=== PATIENT | female | born 1965 | race Caucasian/White ===

== ENCOUNTER 2017-02-18 02:46 | Outpatient (CLI) | payer MEDICARE, MEDICAID ==
[~2017-02-18 02:46] MED LIST: CHOL100010 PO; INSU100C4 SQ; LANTUS SQ
== END 2017-02-18 23:59 | disposition home or self-care (01) ==
LOC: DIABETIC 02:46
PROVIDERS: ATTEND Family Medicine
DX: E10.65 Type 1 diabetes mellitus with hyperglycemia (principal)
CPT/HCPCS: G0108

== ENCOUNTER 2017-03-29 02:20 | Outpatient (CLI) | payer MEDICARE, MEDICAID | END 2017-03-29 23:59 | disposition home or self-care (01) | LOC: DIABETIC 02:20 | PROVIDERS: ATTEND Family Medicine | DX: E11.65 Type 2 diabetes mellitus with hyperglycemia (principal) | CPT/HCPCS: G0108 ==

== ENCOUNTER 2017-03-31 12:28 | Emergency (ER) | payer MEDICARE, MEDICAID ==
[~2017-03-31] VITALS: Ht 162.6 cm; Wt 45.0 kg
[2017-03-31 12:45] VITALS: BP 111/70
[2017-03-31] MEDS ORDERED: TAM75C PO (14:10)
== END 2017-03-31 14:19 | disposition home or self-care (01) ==
LOC: ER 12:29
DX: J10.1 Influenza due to other identified influenza virus with other respiratory manifestations (principal); E11.9 Type 2 diabetes mellitus without complications; Z79.4 Long term (current) use of insulin; Z88.2 Allergy status to sulfonamides; Z88.8 Allergy status to other drugs, medicaments and biological substances
CPT/HCPCS: 99285

== ENCOUNTER 2017-11-14 01:50 | Outpatient (CLI) | payer MEDICARE, MEDICAID | END 2017-11-14 23:59 | disposition home or self-care (01) | LOC: DIABETIC 01:50 | PROVIDERS: ATTEND Family Medicine | DX: E10.65 Type 1 diabetes mellitus with hyperglycemia (principal) | CPT/HCPCS: G0108 ==

== ENCOUNTER 2020-07-25 08:49 | Emergency (ER) | payer MEDICARE, MEDICAID ==
[~2020-07-25] VITALS: Ht 160 cm; Wt 55.4 kg
[~2020-07-25 08:49] MED LIST changes: +CYCL-1 PO
[2020-07-25 08:52] VITALS: BP 134/74
== END 2020-07-25 09:23 | disposition home or self-care (01) ==
LOC: ER 08:49
DX: S93.601A Unspecified sprain of right foot, initial encounter (principal); E11.9 Type 2 diabetes mellitus without complications; G89.29 Other chronic pain; E07.9 Disorder of thyroid, unspecified; Z86.14 Personal history of Methicillin resistant Staphylococcus aureus infection; Z86.19 Personal history of other infectious and parasitic diseases; Z98.890 Other specified postprocedural states; Z79.4 Long term (current) use of insulin; Z79.899 Other long term (current) drug therapy; Z88.2 Allergy status to sulfonamides; Z88.6 Allergy status to analgesic agent; Z88.8 Allergy status to other drugs, medicaments and biological substances; W22.8XXA Striking against or struck by other objects, initial encounter; Y93.01 Activity, walking, marching and hiking; Y92.89 Other specified places as the place of occurrence of the external cause; Y99.8 Other external cause status
CPT/HCPCS: 73630; 99283

== ENCOUNTER 2021-12-27 03:32 | Emergency (ER) | payer MEDICARE, MEDICAID ==
[~2021-12-27] VITALS: Ht 162.6 cm; Wt 59.1 kg
[2021-12-27] MEDS ORDERED: normal saline 1000ML IV soln IVB ONE ×2 (03:55→05:50)
[2021-12-27 04:14] LABS: CLARITY,URINE CLEAR (Clear); COLOR,URINE STRAW (Yellow); GLUCOSE, URINE >=1000 mg/dl (Neg); KETONES,URINE 40 mg/dl (Neg); LEUKOCYTE ESTERASE ,URINE NEGATIVE (Neg); NITRITES, URINE NEGATIVE (Neg); OCCULT BLOOD,URINE TRACE-INTACT (Neg); PROTEIN,URINE NEGATIVE (Neg); UROBILINOGEN,URINE 0.2 E.U/dL (0.2-1.0)
[2021-12-27 04:18] LABS: UA COLLECTION TYPE CLN CATCH MIDSTREAM
[2021-12-27 04:19] LABS: SQUAMOUS EPITHELIAL CELL,UR FEW /LPF (FEW)
[2021-12-27 04:20] LABS: BACTERIA,URINE NONE SEEN /HPF (Neg); RBC,URINE 0-2 /HPF (0-2); WBC,URINE 0-4 /HPF (0-4)
[2021-12-27] MEDS ORDERED: ondansetron/PF 4mg/2ml inj IV ONE (04:20)
[2021-12-27 05:04] LABS: BASOPHILS % (AUTO) 0.5 % (0-1); EOSINOPHILS # (AUTO) 0.2 X10'3 (0-0.9); EOSINOPHILS % (AUTO) 2.1 % (0-6); HEMATOCRIT 35.3 % (35.0-45.0); HEMOGLOBIN 11.7 g/dl (12.0-16.0); LYMPHOCYTES % (AUTO) 13.8 % (21-51); MEAN CORPUSCULAR HEMOGLOBIN 32.6 PG (27.0-31.0); MEAN CORPUSCULAR HGB CONC 33.3 g/dL (33.0-36.5); MEAN CORPUSCULAR VOLUME 97.9 FL (78-98); MEAN PLATELET VOLUME 8.3 FL (7.4-10.4); MONOCYTES # (AUTO) 0.5 X10'3 (0-0.9); MONOCYTES % (AUTO) 7.2 % (2-12); NEUTROPHILS # (AUTO) 5.7 X10'3 (1.8-7.7); NEUTROPHILS % (AUTO) 76.4 % (42-75); PLATELET COUNT 224 X10'3 (140-440); RED CELL DISTRIBUTION WIDTH 13.9 % (11.5-14.5); WHITE BLOOD COUNT 7.4 X10'3 (4.5-11.0)
[2021-12-27 05:21] LABS: ALANINE AMINOTRANSFERASE 25 U/L (12-78); ALBUMIN 3.9 G/DL (3.4-5.0); ALBUMIN/GLOBULIN RATIO 1.1 (1.1-1.5); ALKALINE PHOSPHATASE 100 IU/L (46-116); ANION GAP 12 (8-16); ASPARTATE AMINO TRANSFERASE 21 U/L (10-37); BILIRUBIN,TOTAL 0.3 MG/DL (0.1-1.0); BLOOD UREA NITROGEN 19 MG/DL (7-18); CALCIUM 9.5 MG/DL (8.5-10.1); CHLORIDE 99 MMOL/L (99-107); CREATININE 0.95 MG/DL (0.40-0.90); PHOSPHORUS 3.1 MG/DL (2.3-4.5); POTASSIUM 4.4 MMOL/L (3.5-5.1); SODIUM 135 MMOL/L (135-145); TOTAL CARBON DIOXIDE 24.5 MMOL/L (24-32); TOTAL PROTEIN 7.5 G/DL (6.4-8.2); eGFR 61 ML/MIN
[2021-12-27] MEDS ORDERED: insulin regular, human 10 units/0.1 ml syringe IV ONE (05:35)
[2021-12-27 05:37] LABS: GLUCOSE 513 MG/DL (70-104)
--- NOTE | 2021-12-27 07:04 | NUR ---
BS of 428 pre insulin & 500 ns
[2021-12-27] MEDS ORDERED: insulin regular, human 10 units/0.1 ml syringe SQ ONE (08:12)
[2021-12-27 09:32] VITALS: BP 107/61
== END 2021-12-27 09:35 | disposition home or self-care (01) ==
LOC: ER 03:34
DX: E10.65 Type 1 diabetes mellitus with hyperglycemia (principal); Z20.822 Contact with and (suspected) exposure to COVID-19; J06.9 Acute upper respiratory infection, unspecified; G89.29 Other chronic pain; Z88.2 Allergy status to sulfonamides; Z88.5 Allergy status to narcotic agent
CPT/HCPCS: 36415; 71045; 80053; 81001; 82948; 83735; 84100; 85025; 87502; 87503; 87635; 93005; 96361; 96372; 96374; 96375; 99285; C9803; J1815; J2405; J7030; J7040

== ENCOUNTER 2022-01-16 11:49 | Emergency (ER) | payer MEDICARE, MEDICAID | END 2022-01-16 15:09 | disposition left against medical advice (07) | LOC: ER 11:49 | DX: M79.646 Pain in unspecified finger(s) (principal); Z53.21 Procedure and treatment not carried out due to patient leaving prior to being seen by health care provider ==

== ENCOUNTER 2022-03-07 19:34 | Emergency (ER) | payer MEDICARE, MEDICAID ==
[~2022-03-07] VITALS: Ht 162.6 cm; Wt 59.1 kg
[2022-03-07 20:10] LABS: BASOPHILS % (AUTO) 0.3 % (0-1); EOSINOPHILS % (AUTO) 0.3 % (0-6); HEMATOCRIT 34.6 % (35.0-45.0); HEMOGLOBIN 11.7 g/dl (12.0-16.0); LYMPHOCYTES # (AUTO) 1.6 X10'3 (1.1-4.8); LYMPHOCYTES % (AUTO) 27.4 % (21-51); MEAN CORPUSCULAR HEMOGLOBIN 32.7 PG (27.0-31.0); MEAN CORPUSCULAR HGB CONC 33.8 g/dL (33.0-36.5); MEAN PLATELET VOLUME 7.7 FL (7.4-10.4); MONOCYTES # (AUTO) 0.2 X10'3 (0-0.9); MONOCYTES % (AUTO) 4.3 % (2-12); NEUTROPHILS # (AUTO) 3.9 X10'3 (1.8-7.7); NEUTROPHILS % (AUTO) 67.7 % (42-75); PLATELET COUNT 257 X10'3 (140-440); RED BLOOD COUNT 3.57 X10'6 (4.20-5.60); RED CELL DISTRIBUTION WIDTH 13.1 % (11.5-14.5); WHITE BLOOD COUNT 5.7 X10'3 (4.5-11.0)
[2022-03-07 20:22] LABS: ALANINE AMINOTRANSFERASE 106 U/L (12-78); ALBUMIN 4.1 G/DL (3.4-5.0); ALBUMIN/GLOBULIN RATIO 1.2 (1.1-1.5); ALKALINE PHOSPHATASE 130 IU/L (46-116); ANION GAP 6 (8-16); ASPARTATE AMINO TRANSFERASE 248 U/L (10-37); BILIRUBIN,TOTAL 0.4 MG/DL (0.1-1.0); BLOOD UREA NITROGEN 20 MG/DL (7-18); BUN/CREATININE RATIO 28.6 (6.6-38.0); CALCIUM 9.7 MG/DL (8.5-10.1); CHLORIDE 103 MMOL/L (99-107); GLUCOSE 227 MG/DL (70-104); LIPASE 70 U/L (73-393); POTASSIUM 3.7 MMOL/L (3.5-5.1); SODIUM 137 MMOL/L (135-145); TOTAL CARBON DIOXIDE 28.3 MMOL/L (24-32); TOTAL PROTEIN 7.4 G/DL (6.4-8.2); eGFR 87 ML/MIN
[2022-03-07 20:35] VITALS: BP 113/67
[2022-03-07 21:46] LABS: URINE HCG NEGATIVE (NEG)
[2022-03-07 21:53] LABS: CLARITY,URINE CLEAR (Clear); COLOR,URINE YELLOW (Yellow); GLUCOSE, URINE 250 mg/dl (Neg); KETONES,URINE TRACE mg/dl (Neg); LEUKOCYTE ESTERASE ,URINE NEGATIVE (Neg); NITRITES, URINE NEGATIVE (Neg); OCCULT BLOOD,URINE NEGATIVE (Neg); PROTEIN,URINE NEGATIVE (Neg)
[2022-03-07 21:59] LABS: UA COLLECTION TYPE VOIDED
[2022-03-07] MEDS ORDERED: normal saline 1000ML IV soln IVB ONE (22:55)
[2022-03-07 23:20] LABS: ETHANOL < 0.010 GM/DL (0.0-0.010)
[2022-03-07 23:27] LABS: URINE AMPHETAMINE SCREEN NEGATIVE (Neg); URINE BARBITUATE SCREEN NEGATIVE (Neg); URINE BENZODIAZEPINES SCREEN NEGATIVE (Neg); URINE CANNABINOID SCREEN NEGATIVE (Neg); URINE COCAINE SCREEN NEGATIVE (Neg); URINE METHADONE SCREEN NEGATIVE (Neg); URINE OPIATE SCREEN NEGATIVE (Neg); URINE PHENCYCLIDINE SCREEN NEGATIVE (Neg)
== END 2022-03-08 00:45 | disposition home or self-care (01) ==
LOC: ER 19:35
DX: R74.01 Elevation of levels of liver transaminase levels (principal); R07.81 Pleurodynia; R11.0 Nausea; R10.84 Generalized abdominal pain; E11.9 Type 2 diabetes mellitus without complications; F41.9 Anxiety disorder, unspecified; F32.9 Major depressive disorder, single episode, unspecified; G89.29 Other chronic pain; Z86.14 Personal history of Methicillin resistant Staphylococcus aureus infection; Z72.89 Other problems related to lifestyle; Z98.890 Other specified postprocedural states; Z88.2 Allergy status to sulfonamides; Z88.6 Allergy status to analgesic agent; Z88.8 Allergy status to other drugs, medicaments and biological substances; Z79.4 Long term (current) use of insulin; Z79.899 Other long term (current) drug therapy
CPT/HCPCS: 36415; 76700; 80053; 80305; 80320; 81003; 81025; 83690; 83735; 85025; 93005; 99285

== ENCOUNTER 2022-08-05 11:14 | Emergency (ER) | payer MEDICARE, MEDICAID ==
[~2022-08-05] VITALS: Ht 160 cm; Wt 57.0 kg
[~2022-08-05 11:14] MED LIST changes: -CHOL100010 PO; -CYCL-1 PO; +HYDR-3972 PO; +INSU100I29 SQ; +IXEK80AU SQ; -LANTUS SQ; +LEVO50TA66 PO
[2022-08-05] MEDS ORDERED: normal saline 1000ml 1,000 ML IV STA (14:17)
[2022-08-05] MEDS ORDERED: magnesium hydroxide 30ml (MOM) UD suspension PO ONE (14:20)
[2022-08-05] MEDS ORDERED: lactulose 20gm/30ml cup PO ONE (14:20)
[2022-08-05] MEDS ORDERED: normal saline 1000ml 1,000 ML IV ONE (14:30)
[2022-08-05 14:55] VITALS: BP 129/70
--- NOTE | 2022-08-05 17:44 | NUR ---
PT HAD BM AFTER SOAP ENEMA
== END 2022-08-05 18:01 | disposition home or self-care (01) ==
LOC: ER 11:15
DX: K59.00 Constipation, unspecified (principal); E11.9 Type 2 diabetes mellitus without complications; Z88.2 Allergy status to sulfonamides; Z88.8 Allergy status to other drugs, medicaments and biological substances
CPT/HCPCS: 74018; 96360; 96361; 99284; J7030

== ENCOUNTER 2023-05-22 18:10 | Emergency (ER) | payer MEDICARE, MEDICAID ==
[~2023-05-22] VITALS: Ht 162.6 cm; Wt 57.7 kg
[2023-05-22 18:14] VITALS: TEMP 98.4
[2023-05-22] MEDS: ondansetron/PF 4mg/2ml inj IV ONE (19:21)
[2023-05-22] MEDS: HYDROmorphone inj. 0.5 MG/0.5 ML DISP.SYRIN IV ONE (19:21)
[2023-05-22 19:31] LABS: BASOPHILS % (AUTO) 0.5 % (0-1); EOSINOPHILS # (AUTO) 0.1 X10'3 (0-0.9); EOSINOPHILS % (AUTO) 1.6 % (0-6); HEMATOCRIT 35.3 % (35.0-45.0); HEMOGLOBIN 11.8 g/dl (12.0-16.0); LYMPHOCYTES # (AUTO) 0.9 X10'3 (1.1-4.8); LYMPHOCYTES % (AUTO) 10.7 % (21-51); MEAN CORPUSCULAR HEMOGLOBIN 33.2 PG (27.0-31.0); MEAN CORPUSCULAR HGB CONC 33.5 g/dL (33.0-36.5); MEAN CORPUSCULAR VOLUME 99.1 FL (78-98); MEAN PLATELET VOLUME 7.5 FL (7.4-10.4); MONOCYTES # (AUTO) 0.5 X10'3 (0-0.9); MONOCYTES % (AUTO) 6.4 % (2-12); NEUTROPHILS # (AUTO) 6.5 X10'3 (1.8-7.7); NEUTROPHILS % (AUTO) 80.8 % (42-75); PLATELET COUNT 278 X10'3 (140-440); RED BLOOD COUNT 3.56 X10'6 (4.20-5.60); RED CELL DISTRIBUTION WIDTH 13.8 % (11.5-14.5)
[2023-05-22 19:39] LABS: INR 1.1 INR; PROTHROMBIN TIME 11.1 SECONDS (9.0-12.0)
[2023-05-22 19:49] LABS: ALBUMIN 3.5 G/DL (3.4-5.0); ANION GAP 6 (8-16); BLOOD UREA NITROGEN 21 MG/DL (7-18); BUN/CREATININE RATIO 24.4 (10.0-20.0); CHLORIDE 103 MMOL/L (99-107); CREATININE 0.86 MG/DL (0.40-0.90); GLUCOSE 249 MG/DL (70-104); LIPASE 18 U/L (16-77); MAGNESIUM 1.8 MG/DL (1.5-2.4); POTASSIUM 3.8 MMOL/L (3.5-5.1); PRO BRAIN NATRIURETIC PEPTIDE 61 PG/ML (0-125); SODIUM 138 MMOL/L (135-145); TOTAL CARBON DIOXIDE 28.7 MMOL/L (24-32); eCRCL 64 ML/MIN; eGFR 69 ML/MIN
[2023-05-22] MEDS ORDERED: iohexol 350MG/ML 100ml bottle IV ONE (19:57)
[2023-05-22 21:20] LABS: BILIRUBIN,URINE NEGATIVE (Neg); CLARITY,URINE CLEAR (Clear); COLOR,URINE YELLOW (Yellow); GLUCOSE, URINE NEGATIVE (Neg); KETONES,URINE NEGATIVE (Neg); LEUKOCYTE ESTERASE ,URINE NEGATIVE (Neg); NITRITES, URINE NEGATIVE (Neg); OCCULT BLOOD,URINE NEGATIVE (Neg); PROTEIN,URINE NEGATIVE (Neg); UROBILINOGEN,URINE 0.2 E.U/dL (0.2-1.0)
[2023-05-22 21:35] LABS: UA COLLECTION TYPE CLN CATCH MIDSTREAM
[2023-05-22 22:10] VITALS: BP 129/64
[2023-05-22] MEDS ORDERED: DOCU-148 PO (22:41)
[2023-05-22] MEDS: HYDROmorphone 1 mg/ml syringe IM ONE (22:59)
[2023-05-22] MEDS: docusate sod 100mg capsule PO ONE (23:20)
[2023-05-22] MEDS: HYDROmorphone inj. 0.5 MG/0.5 ML DISP.SYRIN IM ONE (23:20)
[2023-05-22 23:26] VITALS: PULSE 88; RESP 17; O2SAT 99
== END 2023-05-22 23:28 | disposition home or self-care (01) ==
LOC: ER 18:10
DX: G89.3 Neoplasm related pain (acute) (chronic) (principal); E11.9 Type 2 diabetes mellitus without complications; R79.1 Abnormal coagulation profile; Z88.2 Allergy status to sulfonamides; Z88.1 Allergy status to other antibiotic agents; Z79.899 Other long term (current) drug therapy; Z79.84 Long term (current) use of oral hypoglycemic drugs
CPT/HCPCS: 36415; 71045; 71275; 74177; 80048; 81003; 83690; 83735; 83880; 84484; 85025; 85610; 93005; 96372; 96374; 96375; 99285; J1170; J2405; J3490; Q9967

== ENCOUNTER 2023-06-05 14:46 | Emergency (ER) | payer MEDICARE, MEDICAID ==
[~2023-06-05] VITALS: Ht 162.6 cm; Wt 58.3 kg
[~2023-06-05 14:46] MED LIST changes: +DOCU-148 PO
[2023-06-05 14:51] VITALS: BP 135/79; PULSE 83; RESP 16; TEMP 97.7; O2SAT 96
[2023-06-05] MEDS ORDERED: ketorolac trometh inj. 60 MG/2 ML VIAL IM ONE (16:30)
[2023-06-05] MEDS: ketorolac trometh. 30mg/ml inj. IM ONE (16:56)
== END 2023-06-05 16:59 | disposition home or self-care (01) ==
LOC: ER 14:47
DX: R10.9 Unspecified abdominal pain (principal); E11.9 Type 2 diabetes mellitus without complications; G89.29 Other chronic pain; M54.9 Dorsalgia, unspecified; F41.9 Anxiety disorder, unspecified; F32.9 Major depressive disorder, single episode, unspecified; Z85.9 Personal history of malignant neoplasm, unspecified; Z88.8 Allergy status to other drugs, medicaments and biological substances; Z88.2 Allergy status to sulfonamides
CPT/HCPCS: 96372; 99283; J1885